=== PATIENT | male | born 1960 | race Caucasian/White ===

== ENCOUNTER 2024-11-06 17:17 | Observation (INO) | payer OTHER, MEDICARE, BC, SELFPAY ==
[2024-11-06] VITALS (9 sets, daily range): BP systolic 129–157; BP diastolic 62–92; BMI 26.5
[2024-11-06 13:46] LABS: % Basophils 0.3 % (0-2); % Eosinophils 0.8 % (0-6); % Immature Granulocytes 0.2 % (0-0.5); % Lymphocytes 16.4 % (20.5-51.1); % Monocytes 6.1 % (1.7-9.3); % Neutrophils 76.2 % (42.2-75.2); Absolute Eosinophils 0.1 10^3/uL (0-0.7); Absolute Lymphocytes 1.6 10^3/uL (1.2-3.4); Absolute Monocytes 0.6 10^3/uL (0.1-0.6); Absolute Neutrophils 7.6 10^3/uL (1.4-6.5); Hematocrit 38.5 % (39.0-52.0); Mean Corp Hgb Conc. 33.8 g/dL (33.0-37.0); Mean Corpuscular Hgb 30.5 pg (27.0-31.0); Mean Corpuscular Volume 90.4 fL (80.0-94.0); Nucleated Red Blood Cells % 0 % (-); Platelet Count 338 10^3/uL (130-400); Red Blood Cell Count 4.26 10^6/uL (4.70-6.10); Red Cell Dist. Width 13.2 % (11.5-14.5)
--- NOTE | 2024-11-06 13:53 | ED.GENMED ---
History of Present Illness
General
Chief Complaint: Weakness
Source: patient and spouse
Exam Limitations: none
Time Seen by Provider: 11/06/24 13:43
History of Present Illness
History of Present Illness:
See MDM
Past History
Past History
ED Past Medical History: HTN and Psychiatric
Social History
Tobacco: Non-smoker
Alcohol: Occasional
Drug: None
Personal:
Living: with family
Employment: Employed
Phy Exam
Physical Exam
Physical Exam:
See MDM
NIH Stroke Score
Level of Consciousness: 0 - Alert
LOC questions: 0-Answers both correctly
LOC Commands: 0-Performs both correctly
Best Gaze: 0-Normal
Visual Baires: 0=Normal, no visual loss
Facial palsy: 0=Normal, symmetrical
Motor - Right Arm: 0=No drift 10 seconds
Motor - Left Arm: 0=No drift 10 seconds
Motor - Right Le-No drift 5 seconds
Motor - Left Le-No drift 5 seconds
Limb Ataxia: 0-Absent
Sensation: 0-Normal
Best Language: 0-No aphasia
Dysarthria: 0-Normal
Extinction and Inattention: 0-No abnormality
Total Score:: 0
Course
Orders/Labs/Results
Orders:
Orders
11/06/24 13:39
Electrocardiogram (*1) Urgent
Reason for Study: Syncope
EKG- Treatment ONCE
11/06/24 13:41
Complete Blood Count/With Diff Urgent
Comprehensive Metabolic Panel Urgent
Troponin I Urgent
11/06/24 13:50
CT Head W/o Iv Contrast Urgent
Comment:
Reason For Exam: speech issues, double vision
11/06/24 16:00
Aspirin Chewable [Low Strength Aspirin] 324 mg PO NOW STA
Clopidogrel Bisulfate [Plavix] 75 mg PO NOW STA
Abnormal Lab Results
11/06/24
13:41
RBC 4.26 L 10^6/uL
(4.70-6.10)
Hct 38.5 L %
(39.0-52.0)
Absolute Neuts (auto) 7.6 H 10^3/uL
(1.4-6.5)
Neutrophils % 76.2 H %
(42.2-75.2)
Lymphocytes % 16.4 L %
(20.5-51.1)
Glucose 119 H mg/dl
(70-99)
11/06/24 13:41
11/06/24 13:41
Vital Signs
Initial and Last Documented VS:
Initial Vital Signs
Temp Pulse Resp BP Pulse Ox
97.7 F 74 18 149/72 96
11/06/24 13:30 11/06/24 13:30 11/06/24 13:30 11/06/24 13:30 11/06/24 13:30
Last Documented Vital Signs
Temp Pulse Resp BP Pulse Ox
97.7 F 65 25 132/92 96
11/06/24 13:30 11/06/24 15:30 11/06/24 15:30 11/06/24 15:00 11/06/24 15:19
MDM/Problems Addressed
Differential Diagnosis Includes:
Note:
CHIEF COMPLAINT(S)
Double vision, nausea, vomiting, speech slowness, balance issues.
HISTORY OF PRESENT ILLNESS
The patient is a 64-year-old male with a history of vertigo who presented with acute onset of double vision, nausea, and vomiting yesterday morning after waking up and starting his day. The symptoms began while he was preparing toast, progressing to
nausea and the need to crawl due to balance issues. It occurred again earlier this morning. However this time, he vomited three times and experienced tingling on the right side of his face. His reported that his speech seemed slow, though not
slurred, which was concerning due to a family history of strokes, particularly with his father having suffered mini-strokes. Symptoms of double vision and balance issues persisted into this morning, around 7:30 AM, prompting further concern and a
decision to seek emergency care. Balance issues continued, and the patient reported feeling not quite back to his normal self.
The patient does not currently exhibit slurred speech, although his voice had been notably slower. He self-checked for facial droop and found none. There were no blackouts in his vision reported. Neurological checks such as [id number]
coordination and smiling were performed without overt abnormalities.
PHYSICAL EXAM
General: Well appearing and non-toxic
HEENT: protecting airway. EOMI
Neck: appears supple
CV: No evidence of cyanosis. Regular rate and rhythm
Resp: No accessory muscle use
Abd: Non-distended
Extremities: No deformities
Neuro: alert. No focal neurodeficits. Normal finger-nose bilaterally
Psych: Normal affect
Skin: Intact
PROBLEM LIST
Acute:
- Double vision
- Nausea and vomiting
- Speech slowness
- Balance issues
Chronic:
- Hypertension
PLAN
- Immediate imaging with a CT scan to evaluate for acute stroke or intracranial abnormalities.
- Possible follow-up with MRI for comprehensive brain assessment.
- Observation and possible admission for continuous monitoring to rule out atrial fibrillation and ensure the integrity of neck blood vessels.
- Consideration of ultrasound for cardiac evaluation.
- Initiate dual antiplatelet therapy with aspirin and Plavix if diagnosis of a transient ischemic attack or mini-stroke is confirmed.
- Evaluation of cholesterol levels and initiation of statin therapy if necessary.
DIFFERENTIAL DIAGNOSIS
The Differential Diagnosis includes, in no particular order and is not limited to:
- Transient Ischemic Attack (TIA)
- Acute stroke
- Vestibular Neuritis
- Labyrinthitis
- Migrainous vertigo
- Hypertensive crisis
- Cerebral hemorrhage
- Brainstem lesion or demyelination
- Vestibular migraine
- Drug-induced vertigo or imbalance
EKG
My independent EKG interpretation is:
- Rhythm: Normal sinus rhythm
- Weaver: Normal axis
- Abnormalities: None noted
Disposition:
SUMMARY OF ENCOUNTER
The patient, a 64-year-old male with a history of vertigo, presented to the emergency department with acute onset of double vision, nausea, balance issues, tingling on the right side of his face, and slow speech. Prompted by persistent symptoms and
the significant family history of strokes, he sought emergency care. An evaluation, which included a physical examination and neurological assessment, showed no overt abnormalities such as facial droop.
DISPOSITION
Admit
CONSIDERATION FOR ADMISSION
Admission for further workup was deemed necessary due to the suspicion of a transient ischemic attack (TIA).
ASSESSMENT
Suspected transient ischemic attack (TIA) given the patients symptoms and family history.
EMERGENCY TREATMENTS ADMINISTERED
Administered a dose of aspirin and Plavix in the emergency department.
PLAN
The patient will be admitted for further investigation and continuous monitoring. A detailed neurological evaluation will be conducted to rule out TIA or stroke.
INDEPENDENT INTERPRETATION OF TESTS
My independent interpretation of the CT head indicates no acute intracranial abnormalities.
MEDICAL DECISION MAKING
Number and Complexity of Problems Addressed: The patient presented with acute symptoms of potential neurological significance, prompting a comprehensive assessment and management plan focused on ruling out TIA or stroke.
Data: The patients history, symptoms, and family background were considered, and relevant imaging and treatment were initiated as per standard protocols. The negative results from blood tests and CT scan were crucial in deciding the next steps in
management.
Risk: The decision for potential hospitalization was made due to the suspected risk of a TIA. The patients existing hypertension and family history of strokes significantly impacted the management plan.
*Critical Care Note
Total Time (30-74mins, 75-104mins- exclusive of procedures): Not Applicable
ED Attending Note
-
Portions of this chart may have been created with voice recognition software.� Occasional wrong word or��sound alike� substitutions may have occurred due to the inherent limitations of voice recognition software.
Discharge Plan
Departure
Patient Disposition: Admit
Date of Disposition: 11/06/24
Time of Disposition: 16:01
Admit to: Telemetry
Presentation/result/management discussed w/ accepting MD/DO: Hospitalist
Discharge Problem:
Brain TIA
Prescriptions:
No Action
indomethacin 25 MG capsule
25 mg PO TIDPRN PRN (Reason: foot pain) Qty: 15 0RF
prednisone 10 MG tablet
10 mg PO .TAPER Qty: 15 0RF
Rx Instructions:
Take 5 tabs x 1 day, then 1 tab less each day
prednisone 20 MG tablet
60 mg PO DAILY Qty: 15 0RF
meclizine 25 MG tablet
25 mg PO Q8HPRN PRN (Reason: vertigo) Qty: 20 1RF
Referrals:
Rudy Vargas DO [Family Provider, Family Practice]
Interventions
Interventions:
*Risk Screen - Suicide Last Done: 11/06/24 13:42
*General Assessment Last Done: 11/06/24 13:30
*Neglect/Abuse Screening Last Done: 11/06/24 13:42
*ED- Fall Risk Assessment Last Done: 11/06/24 13:42
*ED COVID-19 Vaccine History Last Done: 11/06/24 13:42
ED- Cardiac Assessment Last Done: 11/06/24 13:42
ED- Neurological Assessment Last Done: 11/06/24 13:42
ED- Pulmonary Assessment Last Done: 11/06/24 13:42
Discharge Date and Time
Print Language: CZECH
[2024-11-06 13:59] LABS: ALT (SGPT) 23 U/L (0-50); AST (SGOT) 24 U/L (17-59); Albumin 4.5 g/dl (3.5-5.0); Alkaline Phosphatase 61 U/L (38-126); Blood Urea Nitrogen 19 mg/dl (9-20); Calcium 10.1 mg/dl (8.4-10.2); Carbon Dioxide 30 mmol/L (22-30); Chloride 103 mmol/L (98-107); Estimated Creatinine Clearance 73 ml/min; Glucose 119 mg/dl (70-99); Potassium 3.7 mmol/L (3.5-5.1); Sodium 140 mmol/L (135-145); Total Bilirubin 0.7 mg/dl (0.2-1.3); Total Protein 7.1 g/dl (6.3-8.2); eGFR > 60.00
[2024-11-06 14:11] LABS: Troponin I < 0.012 ng/ml
[2024-11-06] MEDS: LOW STRENGTH ASPIRIN 324 MG PO (16:11)
[2024-11-06] MEDS: PLAVIX 75 MG PO (16:11)
--- NOTE | 2024-11-06 16:18 | HPS.HSE ---
Family Physician
-
Family Physician: Rudy Vargas
Chief Complaint
-
neurologic symptoms
History of Present Illness
Patient is a 64-year-old male with past medical history significant for hypertension, Barretts esophagus, GERD, vertigo, bipolar disorder and hiatal hernia who presented to [facility] ED for evaluation of neurologic symptoms. Patient reports yesterday
morning after getting up starting to make breakfast he had an episode of double vision and what he thought to be vertigo. Patient has history of vertigo where he has a difficult time walking, room will spin at times and causes nausea with vomiting
at times. Patient states yesterday the double vision started and then he felt off balance and got nauseous, all symptoms resolved spontaneously. Patient reports then this morning when he got up he had the same symptoms now with right-sided facial
numbness and tingling, vomiting, slow speech and mild headache. Patient reports that he was attempting to crawl to bathroom since he felt he was going to be sick and he reports falling to right side and hitting his head. Patient denies right upper
or lower extremity weakness. Symptoms today also resolved spontaneously without intervention.
Medical History
Past Medical History
Past Medical History: Reports Other
Additional Past Medical History:
hypertension
Barretts Esophagus
GERD
Bipolar Disorder Depressed
single gastric polyp
Bipolar I (2010)
hiatal hernia
vertigo
Past Surgical History: Reports Other
Additional Past Surgical History:
L inguinal hernia repair w/ mesh 2003 Dr. Yarbrough
vasectomy
left hand trigger finger
Social History
Alcohol: Occasional (approx 2 drink every Sunday and Sunday )
Drug: None
Personal:
Living: With Family
Employment: Employed
Family History
Family History: Other (Mother: breast cancer, vertigo; Father: CVA, TIA, HTN )
Allergies / Home Medications
Allergies reflects when Allergies were last updated in [employer].
Home Medications with original date entered in [employer]
Allergy/Medication List:
Allergies
Allergy/AdvReac Type Severity Reaction Status Date / Time
Cephalosporins Allergy Unknown Verified 11/06/24 16:10
penicillin G Allergy Unknown Verified 11/06/24 16:10
Penicillins Allergy Unknown Verified 11/06/24 16:10
Home Medications
amlodipine 10 mg-benazepril 20 mg capsule 1 cap PO QHS 11/06/24
bupropion HCl 300 mg 24 hr tablet, extended release 300 mg PO DAILY 11/06/24
hydrochlorothiazide 25 mg tablet 25 mg PO DAILY 11/06/24
ibuprofen 200 mg tablet 600 mg PO Q6H PRN pain 11/06/24
lamotrigine 200 mg tablet 200 mg PO BID 11/06/24
lorazepam 1 mg tablet 1 mg PO PRN PRN anxiety 11/06/24
magnesium glycinate 200 mg PO DAILY 11/06/24
multivitamin 1 tab PO DAILY 11/06/24
psyllium 1 packet PO DAILY 11/06/24
quetiapine 100 mg tablet 100 mg PO QHS 11/06/24
Review of Systems
-
History Source: Patient
Abdomen/GI: Reports Nausea and Vomiting
Neurological: Reports Dizzy, Headache, Numbness (right-side facial ) and Other (right-sided facial numbness and tingling, slow speech and double vision )
Physical Exam
Vital Signs
Vital Signs
Temp Pulse Resp BP Pulse Ox
97.7 F 67 18 133/62 97
11/06/24 13:30 11/06/24 16:15 11/06/24 16:15 11/06/24 16:00 11/06/24 16:15
Physical Exam
General: Well Developed, Well Nourished, No Apparent Distress, Comfortable and Conversant
HEENT: NormoCephalic, Moist mucous membranes, Atraumatic, Nose Appears Normal and Ears Appear Normal
Respiratory: Clear
Cardiac: S1/S2 and Regular Rhythm
Breast: Deferred by me
GI: Soft, Non Tender, Non Distended and Normal Bowel Sounds
Rectal: Deferred by Provider
Genito-urinary: Deferred by me
Musculoskeletal: No Clubbing, No Cyanosis and No Edema
Skin: IV/Catheter Site
Neuro: Awake, Alert, AO x 3, No Motor Deficits and Nonfocal/grossly intact
Psych: Calm and Intact Judgment/Insight
Laboratory Results
-
11/06/24 13:41
11/06/24 13:41
Laboratory Results
Total Bilirubin 0.7 mg/dl (0.2-1.3) 11/06/24 13:41
AST 24 U/L (17-59) 11/06/24 13:41
ALT 23 U/L (0-50) 11/06/24 13:41
Alkaline Phosphatase 61 U/L (38-126) 11/06/24 13:41
Troponin I < 0.012 ng/ml 11/06/24 13:41
Data Reviewed
-
CT Scan: Report Reviewed by me (Head: No acute intracranial abnormality noted.)
Medical Tests (Nuc Med, Echo, EKG etc): Report Reviewed by me (EKG: NORMAL SINUS RHYTHM)
Lab Data: Labs Reviewed by me
Impression/Plan
-
IMPRESSION/PLAN:
#double vision, dizziness, nausea, vomiting, headache likely 2/2 CVA/TIA
EKG: NORMAL SINUS RHYTHM
Head CT: No acute intracranial abnormality noted.
- Admit to telemetry
- Consult Neurology
- start aspirin and Plavix
- MRI brain in morning
#hypertension
- continue HCTZ, amlodipine-benazepril
#bipolar disorder
- continue lamotrigine, bupropion, Seroquel and lorazepam
#vertigo
#Barretts esophagus
#GERD
#hiatal hernia
Code status: full code
DVT prophylaxis: SCDs
--- NOTE | 2024-11-06 17:06 | W.PN.UPDATE ---
Update Note
Progress Note Update
This is an addendum to H&P written by Vee Urrutia on 11/06/2024. �Patient seen and examined independently with [employer] ATTENDANT.
64-year-old male past medical history of Ward's esophagus, GERD, hiatal hernia, vertigo, bipolar disorder, high blood pressure, presenting with double vision yesterday which resolved followed by double vision again this morning with dizziness and
nausea and vomiting.
Symptoms now resolved.
CT head shows no acute abnormality.
Concern for TIA. �Aspirin and Plavix given. �Check A1c and lipid panel. �MRI brain. �Neurology consulted.
[2024-11-06 19:50] LABS: Erythrocyte Sed Rate 5 mm/hour (0-20)
[2024-11-06] MEDS: SEROQUEL PO (20:37)
[2024-11-06 22:05] LABS: APTT 25.7 Sec (23.4-35.0); INR 0.87; PT 12.4 Sec (11.4-14.6)
[2024-11-06] MEDS: SEROQUEL 100 MG PO (22:53)
[2024-11-06] MEDS: LAMICTAL 200 MG PO (22:53)
[2024-11-06] MEDS: NORVASC 10 MG PO (22:54)
[2024-11-06] MEDS: ZESTRIL 20 MG PO (22:54)
[2024-11-07 03:29] VITALS: BP 109/56
[2024-11-07 05:18] LABS: Urine Albumin Negative (Neg - Trace); Urine Bilirubin Negative (Negative); Urine Character Clear (Clear); Urine Color Yellow; Urine Glucose Negative (Negative); Urine Ketone Negative (Negative); Urine Leukocyte Negative (Negative); Urine Nitrite Negative (Negative); Urine Occult Blood Negative (Negative); Urine Urobilinogen Negative (Neg - 1+)
[2024-11-07 07:00] VITALS: BP 144/68
[2024-11-07] MEDS: LAMICTAL 200 MG PO (07:58)
[2024-11-07] MEDS: MAG-TAB SR 84 MG PO (07:59)
[2024-11-07] MEDS: ORETIC 25 MG PO (07:59)
[2024-11-07] MEDS: WELLBUTRIN XL (24 hour extended release) 300 MG PO (07:59)
[2024-11-07] MEDS: LOW STRENGTH ASPIRIN 81 MG PO (07:59)
[2024-11-07] MEDS: PLAVIX 75 MG PO (07:59)
[2024-11-07] MEDS: METAMUCIL, KONSYL 1 PACKET PO (08:00)
[2024-11-07] MEDS: ATIVAN 1 MG PO (08:29)
[2024-11-07 08:46] LABS: HDL Cholesterol 68 mg/dl; LDL Cholesterol, Calculated 118 mg/dl; Total Cholesterol 212 mg/dl (50-199); Triglyceride 133 mg/dl (10-149); Very Low Density Lipoprotein 26 mg/dl (0-30)
[2024-11-07 09:01] LABS: Glycohemoglobin (HgbA1c) 5.5 % (4.0-5.6)
--- NOTE | 2024-11-07 09:34 | CON.NEURO4 ---
Addendum entered and electronically signed by Mat Nguyen MD 11/07/24 12:30:
Studies reviewed.
I have personally examined the patient. I reviewed and agree with the BEATER WORKER HELPER's Note.
My addenda:
Awake, alert, interactive. No acute distress.
Speech intact.
Follows 2-step requests w/o difficulty. No tremor.
Extra-ocular movements grossly intact.
Facial movements full and symmetric. Hearing intact to normal conversational volume.
Normal UE movements bilaterally.
Neck: full ROM.
Chest: no dyspnea
Heart: no JVD
Ext: (-) Clubbing, (-) Cyanosis, (-) Edema
IMPRESSIONS/RECOMMENDATIONS:
Abrupt onset of dizziness and mild headache
Possible migraine with aura, BPPV
DAPT, eventual discontinuance of Clopidogrel; reconsider aspirin use after 6 months
Vestibular therapy
Start Atorvastatin 40 mg daily
D/W patient
All questions answered.
Will continue to follow as outpatient.
Original Note:
Documented by User: Vee Cervantes NP 11/07/24 11:32
Consultation - Neurology 4
-
CONSULTING PHYSICIAN: Mat Nguyen MD
REFERRING PHYSICIAN: Hospitalists/CHIP Nelson
DICTATED BY: CHIP Elizabeth
DATE/TIME OF REQUEST: 11/06/24
DATE/TIME OF CONSULTATION: 11/07/24
Reason for Consultation: Dizziness
History of Present Illness:
This is a 64-year-old right-handed male who has presented to the hospital on 11/06/24 with report of diplopia, dizziness, right facial paresthesias, and slow speech. Patient report a significant history of vertigo starting about 10 years ago. He was
evaluated by our inpatient Neurology service in 2018 for dizziness.
From previous evaluation by Neurology Dr. Small on 05/09/2018:
'The patient is a 57 years old male who has presented to the hospital today with worsening of vertigo that he has been experiencing for the last about one month. This started about a month ago when he woke up in the morning and when he got out of
the bed he felt as if the bed was turned upside down. He also felt a sensation of room around him to be spinning. These symptoms got worse with the movement of head, especially to the right side. And they would return to normal when he turned his
head to the left or to the midline. He was seen by his primary care physician who treated him with prednisone and the patient is not able to tell me the dose of prednisone he received. He was also prescribed meclizine 12.5 mg as needed. While his
symptoms got somewhat better over the next 10 day period, they continued to bother him. The patient has been putting up with his symptoms, but this morning he again had a severe recurrence of his vertigo symptoms. Every time his symptoms have been
associated with nausea but no vomiting. He denies any focal weakness or numbness in extremities, difficulty speaking or swallowing, blurred vision, or headache associated with these symptoms. He reports chronic ringing sensation in his ears, but
denies any pain or fulness in his ears. He however complains of chronic sensitivity to light which is not related with onset of these symptoms of vertigo. He also reports difficulty walking and maintaining balance associated with the symptoms of
vertigo. He however denies experiencing any difficulty walking or maintaining balance prior to 1 month ago. He has not been seen by an ENT physician or a physical/vestibular therapist in the past 1 month. He denies starting any new medications
recently.'
CT head in 2018 was unremarkable. It does not appear that he has had previous MRI brain or vessel imaging.
Patient reports that two days ago on 11/05/24 he was standing in his kitchen when he had a sudden onset of diplopia, room-spinning, nausea, difficutly balancing, then vomiting. This felt similar to his previous episodes of vertigo. He felt better
and went about his day as usual. Then yesterday (11/07/24), he reports that the same symptoms started again, but this time he also had right facial tingling and his speech felt slow. He proceeded to crawl to the bathroom to vomit, and lost his
balance falling to the right side and hitting his head. Symptoms resolved spontaneously, then about 30 minutes later he notes a mild left frontal headache set in and is still lingering today (11/07/24). On arrival in the ER, CT head was obtained and
is negative for any acute abnormalities. He was loaded with a full dose aspirin and given clopidogrel 75mg daily. Today he denies any photo/phonophobia, dizziness, vision changes, speech/swallow difficulty, numbness, and weakness. He endorses
chronic tinnitus bilaterally that has become louder in recent months. He typically performs the jay maneuver at home which resolves his symptoms. He reports having about 2 bothersome headaches per year, not associated with dizziness. He denies any
history of TIA, stroke, or sensation/speech changes in the past and was not taking any blood-thinning medications.
Past Medical History: HTN, GERD, Ward's esophagus, bipolar disorder, depression, anxiety, hiatal hernia, vertigo
Surgical History: Linx system implant for Ward's esophagus, L inguinal hernia repair w/ mesh, vasectomy, left hand trigger finger release
Family History: Mother- vertigo. Father- CVA.
Social History: Occasional alcohol. Denies tobacco. Rare cocaine use in his 20's.
Allergies: Cephalosporins, penicillins.
Home Medications: See below.
Review of Symptoms:
Patient denies any fever, chest pain, shortness of breath, GI or symptoms.
�Per the HPI.�All systems are reviewed negative except above.
Physical Exam:
The patient is afebrile, abdomen is nondistended, breathing is unlabored, skin is warm and dry, no edema.
NIH Stroke Scale:
I performed the NIH stroke scale on the patient on 11/07/24 at 0930. The patient scored 0 points on the NIH stroke scale assessment, which were assigned as follows: See below.
Neurologic Examination:
The patient is awake, alert and oriented x 3. He is able to follow commands and answer questions appropriately. There is no aphasia or dysarthria. On cranial nerve assessment, pupils are 3 mm bilateral, round and reactive to light and
accommodation. Visual baires are full. Extraocular movements are intact. Facial sensations are intact and bilaterally symmetrical, there is no facial asymmetry. Hearing is intact bilaterally to normal conversation volume. Tongue palate and uvula
are midline. Sternocleidomastoid strengths are full bilaterally. Motor strengths are 5/5 bilateral upper and lower extremities on medical research [place] scale. There is no drift or involuntary movement noted. Deep tendon reflexes are 2+ bilateral
upper and lower extremities and Babinski is absent bilaterally. Sensations of pain, touch, temperature and vibration are intact and bilaterally symmetrical. There was no extinction noted on double simultaneous stimulation. Coordination is intact by
finger to nose bilaterally.
Lab Results: See below.
Neuro Imaging:
1. CT Head 11/06/24: No acute intracranial abnormality noted.
2. CTA head/neck 11/07/24: No CTA evidence for high-grade stenosis or occlusion of the arterial vasculature in the head or neck. Calcified atherosclerosis contributing to moderate stenosis of the cavernous and supraclinoid right ICA, mild stenosis of
the cavernous and supraclinoid left ICA, and moderate stenosis of a short segment of the distal right vertebral artery (V4 segment).
Differentials for the patient's presentation include:
1. Episode of vertigo similar to prior episodes, except for new occurrence of paresthesias and slow speech. Etiology possibly migraine with aura. Cannot entirely exclude TIA or small stroke.
2. Unable to have MRI due to Linx implant.
3. HTN.
Patient has the following risk factors for their symptoms: tinnitus, HTN, hx vertigo, psychiatric medications
IV Tenecteplase/IAT candidacy: Not a candidate due to resolution of symptoms, NIHSS 0.
Recommendations:
-Continue DAPT with aspirin 81mg and clopidogrel 75mg daily for 21 days. After 21 days, discontinue clopidogrel and continue aspirin 81mg daily only, indefinitely.
-Goal normotension.
-LDL goal <70. LDL is 118. Atorvastatin 40mg daily initiated.
-Goal normoglycemia, hbA1c is 5.5.
-Provide patient with a stroke education packet.
-Continue to perform self-jay maneuver at home.
-Outpatient vestibular therapy.
-DVT prophylaxis.
-Follow-up with Neurology as an outpatient.
Discussed patient care with: Dr. Nguyen, the patient
Vital Signs and Labs
-
Vital Signs and Labs:
Vital Signs
Temp Pulse Resp BP Pulse Ox
98.5 F 60 16 144/68 96
11/07/24 07:00 11/07/24 07:00 11/07/24 07:00 11/07/24 07:00 11/07/24 07:00
Lab Results
11/06/24 13:41
11/06/24 13:41
PT 12.4 Sec (11.4-14.6) 11/06/24 21:36
INR 0.87 11/06/24 21:36
APTT 25.7 Sec (23.4-35.0) 11/06/24 21:36
Sodium 140 mmol/L (135-145) 11/06/24 13:41
Potassium 3.7 mmol/L (3.5-5.1) 11/06/24 13:41
BUN 19 mg/dl (9-20) 11/06/24 13:41
Glucose 119 mg/dl (70-99) H 11/06/24 13:41
Calcium 10.1 mg/dl (8.4-10.2) 11/06/24 13:41
LDL Cholesterol, Calc 118 mg/dl 11/07/24 07:44
Medications
-
Active Medications
Generic Name Dose Route Start Last Admin
Trade Name Freq PRN Reason Stop Dose Admin
Acetaminophen 650 mg 11/06/24 18:33
Acetaminophen 325 Mg Tablet PO 12/04/24 18:32
Q4HPRN PRN
MARTE, mild pain, or temp >100.4F
Amlodipine Besylate 10 mg 11/06/24 22:00 11/06/24 22:54
Amlodipine 10 Mg Tablet PO 12/04/24 21:59 10 mg
HS MICKEY Administration
Aspirin 81 mg 11/07/24 08:00 11/07/24 07:59
Aspirin 81 Mg Chewable Tablet PO 12/05/24 07:59 81 mg
DAILY MICKEY Administration
Bupropion HCl 300 mg 11/07/24 08:00 11/07/24 07:59
Bupropion (24hr) Extended Release 300 Mg Tablet PO 12/05/24 07:59 300 mg
DAILY MICKEY Administration
Clopidogrel Bisulfate 75 mg 11/07/24 08:00 11/07/24 07:59
Clopidogrel 75 Mg Tablet PO 12/05/24 07:59 75 mg
DAILY MICKEY Administration
Hydrochlorothiazide 25 mg 11/07/24 08:00 11/07/24 07:59
Hydrochlorothiazide 25 Mg Tablet PO 12/05/24 07:59 25 mg
DAILY MICKEY Administration
Lamotrigine 200 mg 11/06/24 20:00 11/07/24 07:58
Lamotrigine 100 Mg Tablet PO 12/04/24 19:59 200 mg
BID MICKEY Administration
Lisinopril 20 mg 11/06/24 22:00 11/06/24 22:54
Lisinopril 20 Mg Tablet PO 12/04/24 21:59 20 mg
HS MICKEY Administration
Lorazepam 1 mg 11/06/24 18:33
Lorazepam 1 Mg Tablet PO 12/04/24 18:32
DAILYPRN PRN
anxiety
Magnesium 84 mg 11/07/24 08:00 11/07/24 07:59
Magnesium Lactate 84 Mg Tablet PO 12/05/24 07:59 84 mg
DAILY MICKEY Administration
Psyllium Hydrophilic Mucilloid 1 packet 11/07/24 08:00 11/07/24 08:00
Psyllium Packet PO 12/05/24 07:59 1 packet
DAILY MICKEY Administration
Quetiapine Fumarate 100 mg 11/06/24 18:33 11/06/24 22:53
Quetiapine 100 Mg Tablet PO 12/04/24 18:32 100 mg
HS MICKEY Administration
Sodium Chloride 0 flush 11/06/24 19:00
Sodium Chloride 0.9% (Flush) Syringe IV 12/04/24 18:59
PER PROTOCOL MICKEY
Home Medications
�Medication �Instructions �Recorded
amlodipine 10 mg-benazepril 20 mg 1 cap PO QHS 11/06/24
capsule
bupropion HCl 300 mg 24 hr tablet, 300 mg PO DAILY 11/06/24
extended release
hydrochlorothiazide 25 mg tablet 25 mg PO DAILY 11/06/24
ibuprofen 200 mg tablet 600 mg PO Q6H PRN pain 11/06/24
lamotrigine 200 mg tablet 200 mg PO BID 11/06/24
lorazepam 1 mg tablet 1 mg PO PRN PRN anxiety 11/06/24
magnesium glycinate 200 mg PO DAILY 11/06/24
multivitamin 1 tab PO DAILY 11/06/24
psyllium 1 packet PO DAILY 11/06/24
quetiapine 100 mg tablet 100 mg PO QHS 11/06/24
NIH Stroke Score
Subsequent NIH Scale
Date of Subsequent NIH Scale: 11/07/24
Time of Subsequent NIH Scale: 09:30
NIH Stroke Score
Level of Consciousness: 0 - Alert
LOC Questions: 0-Answers both correctly
LOC Commands: 0-Performs both correctly
Best Horizontal Gaze: 0-Normal
Visual Baires: 0=Normal, no visual loss
Facial Palsy: 0=Normal, symmetrical
Motor - Right Arm: 0=No drift 10 seconds
Motor - Left Arm: 0=No drift 10 seconds
Motor - Right Le-No drift 5 seconds
Motor - Left Le-No drift 5 seconds
Limb Ataxia: 0-Absent
Sensation: 0-Normal
Best Language: 0-No aphasia
Dysarthria: 0-Normal
Extinction and Inattention: 0-No abnormality
NIH Total Score:: 0
Modified [place] (mRS) Score
Modified Migel Scale (mRS): No symptoms
Score: 0

Documented by User: Mat Nguyen MD 11/07/24 12:26
NIH Stroke Score
NIH Stroke Score
NIH Total Score:: 0
Modified [place]el (mRS) Score
Score: 0
[2024-11-07 11:01] VITALS: BP 127/63
--- NOTE | 2024-11-07 11:05 | W.PN.HOSP.TC ---
Addendum entered and electronically signed by Reji Mcgill MD 11/07/24 12:57:
Case discussed with Dr. Nguyen. The patient is medically cleared for discharge. He would like the patient on aspirin and Plavix for 6 months as well as statin.
Total time spent on d/c = 33 min. This included today's physical exam, progress note, review of laboratory and diagnostic data, preparation of discharge documents and prescriptions, and discussions about the pt's hospital course and discharge plan
with the patient and other medical staff services manager involved in the patient's care.
Original Note:
Today's Communication/Plan
-
see plan
Assessment / Plan
Assessment / Plan
Gen: NAD, AAOx3.
Eyes: EOMI, PERRLA, no scleral icterus.
Neck: supple.
CV: RRR, +S1/S2, no m/r/g.
Resp: CTAB, no rales, wheezes, or rhonchi.
Abd: +BS, soft, NT, ND
Skin: No rashes.
Neuro: CN 2-12 intact, non-focal.
Psych: Normal mood and affect.
Possible CVA/TIA:
-presented with double vision, dizziness, nausea, vomiting, headache
-CT brain: No acute intracranial abnormality noted.
-c/s Neurology
-cont ASA/Plavix
-MRI brain cannot be done as Linx system implanted for Jose A's esophagus is not MRI compatible
-Tele with SR
Other problems:
Essential HTN: continue HCTZ/Novasc/ACEi
Bipolar disorder: continue lamotrigine, bupropion, Seroquel and lorazepam
Vertigo
Barretts esophagus
GERD
Hiatal hernia
FULL/SCDs
Anticipated Discharge: Within 24 hours
Subjective/Interval History
-
Date of Service: November 07, 2024
Pt's presenting symptoms have resolved. No new complaints.
Objective Data
-
Vital Signs:
Vital Signs
Temp Pulse Resp BP Pulse Ox
98.4 F 69 18 127/63 96
11/07/24 11:01 11/07/24 11:01 11/07/24 11:01 11/07/24 11:01 11/07/24 11:01
I&O
11/06/24 11/07/24 11/08/24
06:59 06:59 06:59
Intake Total 400 / 400
Output Total 200 / 200
Balance 200 / 200
--- NOTE | 2024-11-07 13:04 | W.DCSUMMARY ---
Discharge Summary
Discharge Data
Date of Admission: 11/06/24
Date of Discharge: 11/07/24
-
Pending Results: No
Hospital Course
Primary diagnoses:
Benign paroxysmal positional vertigo versus migraine with aura versus transient ischemic attack versus possible, small acute stroke
Secondary diagnoses:
Essential hypertension
Bipolar disorder
Vertigo
Barrets esophagus (Linx system implanted for Jose A's esophagus is not MRI compatible)
Gastroesophageal reflux disease
Hiatal hernia
Consultants:
Neurology
Imaging:
CT brain: No acute intracranial abnormality noted
Hospital course: 64-year-old male presented yesterday with chief complaints of double vision, dizziness, nausea, vomiting, headache as outlined in H&P done on admission. Patient has CT scan of the brain without acute intracranial abnormality. He
was placed on aspirin, Plavix, and statin. MRI of the brain cannot be done as Linx system implanted for Jose A's esophagus was not MRI compatible. Telemetry showed sinus rhythm. The patient's symptoms resolved. The patient was cleared for
discharge by neurology on aspirin/Plavix/statin.
Discharge Plan
-
Patient Disposition: Home (Routine Discharge)
Discharge Diagnosis/Procedures: Benign paroxysmal positional vertigo versus migraine with aura versus transient ischemic attack versus possible, small acute stroke
Condition: Good
Diet: Low Cholesterol, 2 Gram Sodium and Other diet
Additional Diets: Heart healthy
Activity: As tolerated
Driving Restrictions: As prior to admission
Referrals:
Mat Nguyen MD [Active, Neurology] - in four to six weeks
Rudy Vargas DO [Family Provider, Family Practice] - in less than 1 week
Prescriptions:
New
atorvastatin 40 mg Tablet
40 mg PO QPM Qty: 30 0RF
clopidogrel 75 mg Tablet
75 mg PO DAILY Qty: 30 0RF
aspirin 81 mg Tablet,Chewable
81 mg PO DAILY Qty: 0 0RF
Continued
multivitamin Tablet
1 tab PO DAILY
lamotrigine 200 mg tablet
200 mg PO BID
psyllium Packet
1 packet PO DAILY
quetiapine 100 mg tablet
100 mg PO QHS
hydrochlorothiazide 25 mg tablet
25 mg PO DAILY
lorazepam 1 mg tablet
1 mg PO PRN PRN (Reason: anxiety)
amlodipine-benazepril 10-20 mg capsule
1 cap PO QHS
bupropion HCl 300 mg tablet extended release 24 hr
300 mg PO DAILY
magnesium glycinate 100 mg magnesium Capsule
200 mg PO DAILY
Discontinued
ibuprofen 200 mg Tablet
600 mg PO Q6H PRN (Reason: pain)
Discharge Orders:
Discharge Patient (As Directed); Ordered 11/07/24
Ordered By: Reji Mcgill
Discharge Date and Time
Print Language: YORUBA
[2024-11-07 17:49] LABS: TSH Reflex To Free T4 3.09 uIU/ml (0.47-4.68)
[2024-11-07 18:08] LABS: Vitamin B12 329 pg/ml (239-931)
[2024-11-07 20:02] LABS: Folate > 20.0 ng/ml (2.76-20)
== END 2024-11-07 14:22 | disposition home or self-care (01) ==
LOC: 4 WEST ACU 17:17
PROVIDERS: Nurse Practitioner Family; Student in an Organized Health Care Education/Training Program; ADMITTING PHYSICIAN Hospitalist; ATTENDING PHYSICIAN Internal Medicine; CONSULT PHYSICIAN Psychiatry & Neurology Neurology; EMERGENCY PHYSICIAN Student in an Organized Health Care Education/Training Program; FAMILY PHYSICIAN Family Medicine
DX: R42 Dizziness and giddiness (principal); R53.1 Weakness; H53.2 Diplopia; R47.9 Unspecified speech disturbances; R51.9 Headache, unspecified; R11.2 Nausea with vomiting, unspecified; R20.0 Anesthesia of skin; R20.2 Paresthesia of skin; R26.2 Difficulty in walking, not elsewhere classified; I65.23 Occlusion and stenosis of bilateral carotid arteries; K21.9 Gastro-esophageal reflux disease without esophagitis; F31.9 Bipolar disorder, unspecified; K44.9 Diaphragmatic hernia without obstruction or gangrene; K31.7 Polyp of stomach and duodenum; I10 Essential (primary) hypertension; Z82.3 Family history of stroke; Z79.52 Long term (current) use of systemic steroids; Z87.19 Personal history of other diseases of the digestive system; Z88.0 Allergy status to penicillin; Z88.1 Allergy status to other antibiotic agents; Z79.899 Other long term (current) drug therapy
CPT/HCPCS: 70450; 70496; 70498; 80053; 80061; 81003; 82607; 82728; 82746; 83036; 84443; 84484; 85025; 85610; 85652; 85730; 93005; 99285; G0378; Q9967

== ENCOUNTER 2024-12-24 11:43 | Outpatient (RCR) | payer OTHER, SELFPAY | END 2024-12-24 23:59 | disposition home or self-care (01) | LOC: RPT 11:43 | PROVIDERS: ATTENDING PHYSICIAN Family Medicine | DX: R42 Dizziness and giddiness (principal); Z73.6 Limitation of activities due to disability | CPT/HCPCS: 97112; 97163 ==

== ENCOUNTER 2024-12-30 07:33 | Outpatient (RCR) | payer OTHER, SELFPAY | END 2024-12-30 23:59 | disposition home or self-care (01) | LOC: RPT 07:33 | PROVIDERS: ATTENDING PHYSICIAN Family Medicine | DX: R42 Dizziness and giddiness (principal); Z73.6 Limitation of activities due to disability | CPT/HCPCS: 97112 ==